=== PATIENT | male | born 1980 ===

== ENCOUNTER 2020-07-01 07:39 | Emergency (ER) | payer SELFPAY ==
[~2020-07-01] VITALS: Ht 162.6 cm; Wt 67.9 kg
[2020-07-01 07:44] VITALS: BP 126/99
== END 2020-07-01 08:44 | disposition left against medical advice (07) ==
LOC: ED 08:20
DX: L03.114 Cellulitis of left upper limb (principal); L03.113 Cellulitis of right upper limb; R94.31 Abnormal electrocardiogram [ECG] [EKG]; Z88.0 Allergy status to penicillin
CPT/HCPCS: 93005; 99283

== ENCOUNTER 2020-10-24 10:46 | Emergency (ER) | payer MEDICARE, MEDICAID ==
[~2020-10-24] VITALS: Ht 162.6 cm; Wt 69.9 kg
[2020-10-24 10:50] VITALS: BP 140/62
== END 2020-10-24 11:44 | disposition home or self-care (01) ==
LOC: ED 11:33
DX: K46.0 Unspecified abdominal hernia with obstruction, without gangrene (principal); Z76.0 Encounter for issue of repeat prescription
CPT/HCPCS: 99281; 99283

== ENCOUNTER 2020-10-29 22:24 | Emergency (ER) | payer MEDICARE, MEDICAID ==
[~2020-10-29] VITALS: Ht 162.6 cm; Wt 64.1 kg
[2020-10-29 22:28] VITALS: BP 132/99
--- NOTE | 2020-10-29 23:28 | NUR ---
pt refusing taxi voucher
== END 2020-10-29 23:30 | disposition home or self-care (01) ==
LOC: ED 23:18
DX: F33.9 Major depressive disorder, recurrent, unspecified (principal); F15.10 Other stimulant abuse, uncomplicated; Z72.9 Problem related to lifestyle, unspecified; R00.0 Tachycardia, unspecified; F17.210 Nicotine dependence, cigarettes, uncomplicated
CPT/HCPCS: 99281

== ENCOUNTER 2020-10-31 06:40 | Emergency (ER) | payer MEDICARE, MEDICAID ==
[~2020-10-31] VITALS: Ht 162.6 cm; Wt 68.4 kg
[2020-10-31 06:50] VITALS: BP 109/45
--- NOTE | 2020-10-31 06:57 | NUR ---
LIBRARY SERVICES COORDINATOR: PT REFUSING TO HAVE TEMPERATURE TAKEN.
--- NOTE | 2020-10-31 07:00 | NUR ---
This pt presents without shoes, "no, I don't have my shoes ma'am." Pt refuses to answer why he's in the ER, "I'm here for reasons. Okay, I'm not doing this, I'm not answering this, I'm not doing this."
--- NOTE | 2020-10-31 07:49 | NUR ---
This RN attempted to educate pt about POC including legal hold. Security at bedside. Pt states "can you get that bitch out of here."
[2020-10-31] MEDS ORDERED: ZIPRASIDONE 20 MG INJ IM ONE (08:00)
--- NOTE | 2020-10-31 08:02 | NUR ---
Pt moved to room 1 for security purposes. Pt's belongings placed in security locker.
--- NOTE | 2020-10-31 08:05 | NUR ---
Report to TONY Tapia. Willie to assume full care of pt.
--- NOTE | 2020-10-31 08:09 | NUR ---
TASK RN: PT REFUSED LAB WORK, STATES "I'LL DO IT IN AN HOUR". PRIMARY RN UPDATED.
--- NOTE | 2020-10-31 08:17 | NUR ---
PT VERBALLY AGGRESSIVE AND COMBATIVE TOWARDS STAFF. SECURITY AT BEDSIDE. PT IN SECURE ROOM. PT NOW LAYING IN GURNEY. REFUSING LABS. DEMANDING FOOD. PT STAYING IN ROOM AT THIS TIME
[2020-10-31 09:17] LABS: BASOPHILS % (AUTO) 0 % (0-1); EOSINOPHILS % (AUTO) 3 % (1-7); LYMPHOCYTES % (AUTO) 16 % (22-44); MEAN CORPUSCULAR HEMOGLOBIN 32.1 pg (27.5-34.5); MEAN PLATELET VOLUME 8.2 fL (7.4-10.4); MONOCYTES % (AUTO) 6 % (2-9); NEUTROPHILS % (AUTO) 76 % (42-75); PLATELET COUNT 244 x10^3/uL (130-400); RED BLOOD COUNT 4.43 x10^6/uL (4.38-5.82); RED CELL DISTRIBUTION WIDTH 13.5 % (9.4-14.8)
--- NOTE | 2020-10-31 09:22 | NUR ---
PT GIVEN WATER, NEED UA. PT CALLING RN INAPPROPIATE NAMES AND LANGUAGE.
[2020-10-31 09:23] LABS: MD NO
[2020-10-31 09:29] LABS: ALBUMIN 3.7 g/dL (3.4-5.0); ANION GAP 4 mmol/L (5-15); CALCIUM 8.7 mg/dL (8.5-10.1); CHLORIDE 112 mmol/L (98-107); CREATININE 0.55 mg/dL (0.7-1.3)
[2020-10-31 09:32] LABS: SALICYLATE LEVEL < 1.7 mg/dL (2.8-20.0)
--- NOTE | 2020-10-31 10:31 | NUR ---
UA SENT. MEAL TRAY ORDERED. PT SLEEPING
[2020-10-31 10:49] LABS: AMPHETAMINE SCREEN, URINE Positive (Negative); BARBITURATE SCREEN, URINE Negative (Negative); BENZODIAZEPINE SCREEN, URINE Negative (Negative); CANNABINOID SCREEN, URINE Positive (Negative); COCAINE SCREEN, URINE Negative (Negative); METHADONE SCREEN, URINE Negative (Negative); OPIATE SCREEN, URINE Negative (Negative)
--- NOTE | 2020-10-31 12:01 | NUR ---
GIVEN MEAL TRAY.
--- NOTE | 2020-10-31 14:53 | NUR ---
[employer] CALLED. PT LUNGED AT WILDLIFE BIOSTATION RESEARCH ECOLOGIST, VERBALY AGGRESSIVE. SECURITY AT DOOR.
--- NOTE | 2020-10-31 15:33 | NUR ---
PT ESCORTED OFF CAMPUS BY [facility]. PT TRESPASSING AT THIS TIME. VERBALLY AGGRESSIVE AND COMBATIVE TOWARDS STAFF.
== END 2020-10-31 15:36 | disposition home or self-care (01) ==
LOC: ED 07:55
DX: F44.9 Dissociative and conversion disorder, unspecified (principal); F32.9 Major depressive disorder, single episode, unspecified; F15.10 Other stimulant abuse, uncomplicated; R45.850 Homicidal ideations
CPT/HCPCS: 36415; 80048; 80299; 80307; 80320; 80329; 82040; 84443; 85025; 96372; 99283; J3486; G0480

== ENCOUNTER 2020-12-03 18:47 | Emergency (ER) | payer MEDICARE, MEDICAID ==
[~2020-12-03] VITALS: Ht 162.6 cm; Wt 67.6 kg
[2020-12-03 18:52] VITALS: BP 131/69
--- NOTE | 2020-12-03 19:12 | NUR ---
AMELIA PERALTA AT BS NOW.
--- NOTE | 2020-12-03 19:19 | NUR ---
PT UPSET THAT ER PA LEFT ROOM, "BEFORE I WAS DONE TELLING HER WHAT WAS GOING ON. HOW IS SHE GOING TO HELP ME IF SHE WON'T EVEN LET ME FINISH?" ATTEMPTED TO CALM PT AND REVIEW POC WITH HIM. BLANKET PROVIDED. PT PACING AROUND ROOM. DOESN'T ANSWER ALL QUESTIONS. STATES HIS FEET ARE VERY PAINFUL DUE TO HIS NEUROPATHY. REDNESS NOTED TO ALL TOES.
--- NOTE | 2020-12-03 19:54 | NUR ---
PT CAME OUT OF ROOM, YELLING AT STAFF. ERP TALKED TO PT IN HALLWAY. PT CONTINUES TO BE AGGRESSIVE AND YELL AT STAFF. YELLS, "I'M NOT LEAVING UNTIL YOU HELP ME!" SECURITY ESCORTED PT BACK INTO ROOM AND ONTO [facility]. FREDDY CALLED BY SECURITY TO ESCORT PT OUT OF ED.
--- NOTE | 2020-12-03 20:16 | NUR ---
PT ESCORTED OUT OF ED IN POLICE CUSTODY.
== END 2020-12-03 20:17 | disposition home or self-care (01) ==
LOC: ED 19:00
DX: F15.90 Other stimulant use, unspecified, uncomplicated (principal); Z72.9 Problem related to lifestyle, unspecified; F17.210 Nicotine dependence, cigarettes, uncomplicated
CPT/HCPCS: 99406

== ENCOUNTER 2020-12-04 13:46 | Emergency (ER) | payer MEDICARE, MEDICAID ==
[~2020-12-04] VITALS: Ht 177.8 cm; Wt 67.4 kg
--- NOTE | 2020-12-04 14:04 | NUR ---
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 PT WAS FOUND CHARGING PEOPLE AND CARS, AGGRESSIVE, ANGRY. MEDICATED WITH 5 MG VERSED BY [facility]. SLEEPING MOSTLY. AWAKENS EASILY, DENIES DRUG USE NOW IN ED ROOM. MITZI JAIME AT BEDSIDE FOR ASSESSMENT. SITTER OUTSIDE OF ROOM.
--- NOTE | 2020-12-04 14:33 | NUR ---
REPORT TO TONY NUNN.
--- NOTE | 2020-12-04 14:38 | NUR ---
BREAK RN: PT AWAKE, STATES, "GET ME A SANDWICH BITCH". PT YELLING AT STAFF. MASK PLACED ON PATIENT, PT BECAME INCREASE ANGRY AND YELLING AT STAFF. INCREASE EMOTIONAL SUPPORT GIVEN.
[2020-12-04 14:43] VITALS: BP 111/69
[2020-12-04 14:49] LABS: BASOPHILS % (AUTO) 1 % (0-1); EOSINOPHILS % (AUTO) 3 % (1-7); LYMPHOCYTES % (AUTO) 16 % (22-44); MEAN CORPUSCULAR HEMOGLOBIN 32.5 pg (27.5-34.5); MEAN CORPUSCULAR HGB CONC 35.4 g/dL (33.2-36.2); MEAN PLATELET VOLUME 7.7 fL (7.4-10.4); MONOCYTES % (AUTO) 8 % (2-9); NEUTROPHILS % (AUTO) 72 % (42-75); PLATELET COUNT 331 x10^3/uL (130-400); RED BLOOD COUNT 4.32 x10^6/uL (4.38-5.82); RED CELL DISTRIBUTION WIDTH 13.1 % (9.4-14.8)
[2020-12-04 14:55] LABS: MD NO
--- NOTE | 2020-12-04 14:55 | NUR ---
BREAK RN: REPORT TO GAGAN JIMENEZ, PLAN OF CARE DISCUSSED
[2020-12-04 15:00] LABS: ALBUMIN 3.6 g/dL (3.4-5.0); ANION GAP 6 mmol/L (5-15); CALCIUM 8.9 mg/dL (8.5-10.1); CHLORIDE 109 mmol/L (98-107); CREATININE 0.79 mg/dL (0.7-1.3)
[2020-12-04 15:01] LABS: SALICYLATE LEVEL < 1.7 mg/dL (2.8-20.0)
--- NOTE | 2020-12-04 15:45 | NUR ---
PT ON GURNEY AWAKE & YELLING AT STAFF, PT REPEATEDLY ASKED TO CALM DOWN SO WE COULD DETERMINE WHETHER HE WAS READY TO REMOVE 4-PT RESTRAINTS OR NOT, PT YELLS "FUCK YOU! GIVE ME A FUCKING SANDWICH! I DON'T NEED TO DO SHIT FOR YOU TO GIVE ME FOOD, BITCH!", PT THRASHING WHILE IN RESTRAINTS, REFUSING ALL CARE INCL CONSULT WITH PSYCH CUSTOMER EXPERIENCE MANAGER (CHARLES). SITTER IN FULL VIEW.
--- NOTE | 2020-12-04 15:48 | NUR ---
[facility] CALLED FOR PT DISPO TO LONG-TERM FOR TRESSPASSING, PER PALMA (FREDDY)- FREDDY TO ARRIVE WITHIN THE HR, SORTER UPHOLSTERY PARTS & SUP AWARE.
--- NOTE | 2020-12-04 16:20 | NUR ---
Patient given discharge instructions and immediately threw it on the floor, they have confirmed that they understand the instructions. Patient ambulatory with steady gait accompanied by [employer].
== END 2020-12-04 16:41 | disposition home or self-care (01) ==
LOC: ED 16:10
DX: F11.129 Opioid abuse with intoxication, unspecified (principal); F15.129 Other stimulant abuse with intoxication, unspecified; F17.200 Nicotine dependence, unspecified, uncomplicated; Y90.0 Blood alcohol level of less than 20 mg/100 ml
CPT/HCPCS: 36415; 80048; 80299; 80320; 80329; 82040; 85025; 99283; 99285; G0480